=== PATIENT | female | born 1950 | race Two or more races ===

== ENCOUNTER → 2018-09-02 | Day surgery (SDC) | payer MEDICARE, OTHER ==
[~2018-09-02] MED LIST: ALBUTEROL/ATROVENT INH; BUPIVACAINE HCL 0.5% 10ML MPF VIAL INJ ONE; COREG3.125 MG PO; HUMALOG100 UNIT/1 SC; HUMALOG100 UNIT/3 SC; IOPAMIDOL 200 MG/ML 20 ML VIAL IT ONE; IOPAMIDOL 610MG/1ML 300 MG/ML VIAL IV ONE; LEVOTHYROXINE0.5 GM PO; LIDOCAINE HCL 1% 30ML-PF VIAL ONE; LIDOCAINE HCL 2% LOCAL INJ 5 ML SDV VIAL INJ ONE; METFORMIN HCL850 MG PO; PROAIR HFA INH8.5 GM IH; PROPOFOL IV EMULSION 10 MG/ML 20 ML VIAL ONE; QVAR INH; TOUJEO SC; TRIAMCINOLONE ACET 40 MG/ML VIAL ONE; [UNRECOGNIZED DRUG - OTHER] SC
--- OUTSIDE RECORDS SUMMARY | 2018-09-02 05:11 | XMS REPORT | Clinical Summary ---
Author Author [facility] Address Unknown Phone Unavailable Care Team Providers Care Powder Coat Painter Name Role Phone Shubham Cisneros MD PCP Allergies Not on File Current Medications Not on file Active Problems Not on file Encounters Date Type Specialty Care Team Description 08/09/2018 [facility] Radiology Dami Noyola, Right hip pain Encounter DO 08/09/2018 [facility] Radiology Dami Noyola, Lumbosacral stenosis Encounter DO 08/06/2018 Procedure Pass Radiology 08/06/2018 Procedure Pass Radiology 08/06/2018 Transcribe Access Dami Noyola, Lumbosacral stenosis Orders DO (Primary Dx); Right hip pain after 09/01/2017 Social History Tobacco Use Types Packs/Day Years Used Date Never Assessed Sex Assigned at Date Recorded Not on file Last Filed Vital Signs Vital Sign Reading Time Taken Blood Pressure - - Pulse - - Temperature - - Respiratory Rate - - Oxygen Saturation - - Inhaled Oxygen - - Concentration Weight 68 kg (150 lb) 08/09/2018 11:15 AM CDT Height - - Body Mass Index - - Plan of Treatment Health Maintenance Due Date Last Done Comments BREAST CANCER SCREENING 1998 COLON CANCER SCREENING 1998 SHINGRIX VACCINE (#1) 1998 ZOSTER VACCINE 2008 PNEUMOCOCCAL 2013 POLYSACCHARIDE VACCINE AGE 65 AND OVER PNEUMOCOCCAL-13 2013 INFLUENZA VACCINE 06/12/2018 Procedures Procedure Name Priority Date/Time Associated Diagnosis Comments MRI LUMBAR SPINE W WO Routine 08/09/2018 Lumbosacral stenosis Results for this CONTRAST 12:35 PM CDT procedure are in the results section. MRI LOWER EXTREMITY JOINT Routine 08/09/2018 Right hip pain Results for this WO CONTRAST RIGHT 12:34 PM CDT procedure are in the results section. ESTIMATED GFR Routine 07/30/2018 Results for this 11:39 AM CDT procedure are in the results section. BASIC METABOLIC PANEL Routine 07/30/2018 Lumbosacral stenosis Results for this 11:39 AM CDT procedure are in the results section. after 09/01/2017 Results * MRI Lumbar Spine W Wo Contrast (08/09/2018 12:35 PM) Narrative Performed At EXAM:MRI LUMBAR SPINE W WO CONTRAST [facility] COMPARISON: None. CLINICAL HISTORY: M48.07 Spinal stenosislumbosacral region, M48.07 TECHNIQUE: Multiplanar multisequence examination was performedWith and without contrast. FINDINGS: Sagittal images demonstrate degenerative desiccation of the L4-5 disc. There are postoperative changes at L5-S1. Axial images demonstrate the following: L5-S1: There is a broad-based central and somewhat right-sided subarticular disc protrusion with impingement on the thecal sac and the right S1 nerve root. There is laminectomy. There is abnormal signal within the disc space consistent with interbody fusion. L4-5: There is laminectomy. There is a broad-based central and somewhat left-sided disc protrusion with impingement on the thecal sac and the left L5 nerve root. L3-4: No significant disc bulge or stenosis. L2-3: No significant disc bulge or stenosis. L1-2: No significant disc bulge or stenosis. IMPRESSION: Postoperative changes at L4-5 and L5-S1. Broad-based central and right paracentral protrusion at L5-S1 impinging on the thecal sac and the right S1 root Central and somewhat left-sided disc protrusion at L4-5 with minimal on the thecal sac and the left L5 nerve root. [facility]-[id number] Procedure Note Hm Interface, Radiology Results Incoming - 08/09/2018 2:03 PM CDT EXAM: MRI LUMBAR SPINE W WO CONTRAST COMPARISON: None. CLINICAL HISTORY: M48.07 Spinal stenosis lumbosacral region, M48.07 TECHNIQUE: Multiplanar multisequence examination was performed With and without contrast. FINDINGS: Sagittal images demonstrate degenerative desiccation of the L4-5 disc. There are postoperative changes at L5-S1. Axial images demonstrate the following: L5-S1: There is a broad-based central and somewhat right-sided subarticular disc protrusion with impingement on the thecal sac and the right S1 nerve root. There is laminectomy. There is abnormal signal within the disc space consistent with interbody fusion. L4-5: There is laminectomy. There is a broad-based central and somewhat left- sided disc protrusion with impingement on the thecal sac and the left L5 nerve root. L3-4: No significant disc bulge or stenosis. L2-3: No significant disc bulge or stenosis. L1-2: No significant disc bulge or stenosis. IMPRESSION: Postoperative changes at L4-5 and L5-S1. Broad-based central and right paracentral protrusion at L5-S1 impinging on the thecal sac and the right S1 root Central and somewhat left-sided disc protrusion at L4-5 with minimal on the thecal sac and the left L5 nerve root. [facility]-[id number] Performing Organization Address City/State/Zipcode Phone Number [facility] [address] [place] [address] * MRI Lower Extremity Joint Wo Contrast Right (08/09/2018 12:34 PM) Narrative Performed At [facility] EXAMINATION:MRI LOWER EXTREMITY JOINT WO CONTRAST RIGHT CLINICAL HISTORY:M25.551 Pain in right hip, M25.551 COMPARISON:No prior TECHNIQUE: Multisequence multiplanar MRI of the hips with special attention to the right hip was performed without contrast. FINDINGS: Osteophyte is noted in right hip with axial joint space narrowing as well as mild osteoarthritis formation. A full-thickness cartilage defect is not identified. Hip joint fluid upper limits of normal. No femoral head avascular necrosis or femoral neck stress fractures. Degenerative tearing of the anterior superior and posterior superior labrum. Increased lateral Center edge angles bilaterally related to the axial joint space narrowing and calcification along the lateral acetabular rim. Correlate for pincer-type impingement. Mild heterogeneous marrow in the spine, pelvis and proximal femurs without suspicious lesion, fracture or stress reaction. Gluteal tendons intact. Hamstring tendons intact. Mild narrowing of the right quadratus lumborum or space measuring 7 mm with findings that can be seen with ischiofemoral impingement. No iliopsoas or trochanteric bursitis. IMPRESSION: 1. Osteoarthritis in the right hip with axial joint space narrowing and findings that can be seen with pincer-type femoroacetabular impingement and the ischiofemoral impingement. 2.Joint effusion. Degenerative labral tearing in the right hip. Procedure Note Interface, Radiology Results Incoming - 08/09/2018 2:05 PM CDT EXAMINATION: MRI LOWER EXTREMITY JOINT WO CONTRAST RIGHT CLINICAL HISTORY: M25.551 Pain in right hip, M25.551 COMPARISON: No prior TECHNIQUE: Multisequence multiplanar MRI of the hips with special attention to the right hip was performed without contrast. FINDINGS: Osteophyte is noted in right hip with axial joint space narrowing as well as mild osteoarthritis formation. A full-thickness cartilage defect is not identified. Hip joint fluid upper limits of normal. No femoral head avascular necrosis or femoral neck stress fractures. Degenerative tearing of the anterior superior and posterior superior labrum. Increased lateral Center edge angles bilaterally related to the axial joint space narrowing and calcification along the lateral acetabular rim. Correlate for pincer-type impingement. Mild heterogeneous marrow in the spine, pelvis and proximal femurs without suspicious lesion, fracture or stress reaction. Gluteal tendons intact. Hamstring tendons intact. Mild narrowing of the right quadratus lumborum or space measuring 7 mm with findings that can be seen with ischiofemoral impingement. No iliopsoas or trochanteric bursitis. IMPRESSION: 1. Osteoarthritis in the right hip with axial joint space narrowing and findings that can be seen with pincer-type femoroacetabular impingement and the ischiofemoral impingement. 2. Joint effusion. Degenerative labral tearing in the right hip. Performing Organization Address City/[facility]/Zipcode Phone Number [facility] [address] [place] [address] * Estimated GFR (07/30/2018 11:39 AM) Estimated GFR 51 (A) mL/min/1.73 m2 [facility] DEPARTMENT OF Comment: PATHOLOGY AND CatergoryUnitsInte GENOMIC MEDICINE rpretation G1 >=90 Normal or high G2 60-89Mildly decreased [id number] Mildly to moderately decreased [id number] Moderately to severely decreased G4 15-29Severely decreased G5 <15Kidney failure The eGFR was calculated using the Chronic Kidney Disease Epidemiology Collaboration (CKD-EPI) equation. Interpretation is based on recommendations of the National Kidney Foundation-Kidney Disease Outcomes Quality Initiative (NKF-KDOQI) published in 2014. Specimen Plasma specimen Performing Organization Address City/[facility]/Zipcode Phone Number [facility] DEPARTMENT OF [place] [address] PATHOLOGY AND GENOMIC MEDICINE * Basic metabolic panel (07/30/2018 11:39 AM) Sodium 137 135 - 150 mEq/L [facility] DEPARTMENT OF PATHOLOGY AND GENOMIC MEDICINE Potassium 4.3 3.5 - 5.0 mEq/L [facility] DEPARTMENT OF PATHOLOGY AND GENOMIC MEDICINE Chloride 94 (L) 98 - 112 mEq/L [facility] DEPARTMENT OF PATHOLOGY AND GENOMIC MEDICINE CO2 28 24 - 31 mmol/L [facility] DEPARTMENT OF PATHOLOGY AND GENOMIC MEDICINE Anion gap 15@ANIO 7 - 15 mEq/L [facility] DEPARTMENT OF PATHOLOGY AND GENOMIC MEDICINE BUN 18 7 - 18 mg/dL [facility] DEPARTMENT OF PATHOLOGY AND GENOMIC MEDICINE Creatinine 1.10 (H) 0.50 - 0.90 mg/dL [facility] DEPARTMENT OF PATHOLOGY AND GENOMIC MEDICINE Glucose 213 (H) 65 - 100 mg/dL [facility] DEPARTMENT OF PATHOLOGY AND GENOMIC MEDICINE Calcium 9.6 8.8 - 10.2 mg/dL [facility] DEPARTMENT OF PATHOLOGY AND GENOMIC MEDICINE Specimen Plasma specimen Performing Organization Address City/State/Zipcode Phone Number [facility] DEPARTMENT [place] [address] [place] [address] PATHOLOGY AND GENOMIC MEDICINE after 09/01/2017 Insurance Payer Benefit Subscriber ID Type Phone Address Plan / Group MEDICARE MEDICARE xxxxxxxxxx Medicare [place] B CIGNA CIGNA OPEN xxxxxxxxxxx HMO ACCESS/NET WORK
[2018-09-02 07:45] VITALS: BP 149/76
--- NOTE | 2018-09-02 13:30 | Operative Report ---
DATE OF PROCEDURE: September 02, 2018 PREOPERATIVE DIAGNOSIS: Osteoarthritis, right hip. POSTOPERATIVE DIAGNOSIS: Osteoarthritis, right hip. PROCEDURE: Fluoroscopic-guided right hip injection. INDICATIONS: The patient is a 68-year-old lady who has osteoarthritis of her right hip. She is also status post back surgery. Her arthritis is not so bad that it is entirely obvious that all of her symptoms are coming from her hip. We have discussed the findings and options and plan on a fluoroscopic-guided corticosteroid injection of the right hip. The risks and benefits were explained. She stated she understood and wished to proceed. DESCRIPTION OF PROCEDURE: The patient was brought to the procedure room. She was given a MAC anesthetic. Her right hip was prepped and draped in a sterile manner. A preoperative time out was performed. A C-arm image intensifier was used to assist in placing an 18-gauge spinal needle into the inferior recess of the right hip joint. She is allergic to IV contrast, and so we avoided confirming position with any contrast. A small amount of synovial fluid was aspirated. A mixture of 40 mg of Solu-Medrol and 9 mL of Marcaine was injected into the hip joint. The needle was retrieved, and a Band-Aid was applied. There was no blood loss, and all needle and sponge counts were correct. Job#: [id number]
== END | disposition home or self-care (01) ==
LOC: OR 05:09
PROVIDERS: ATTEND Specialist
DX: M16.11 Unilateral primary osteoarthritis, right hip (principal); E11.9 Type 2 diabetes mellitus without complications; Z79.4 Long term (current) use of insulin; Z79.84 Long term (current) use of oral hypoglycemic drugs; K21.9 Gastro-esophageal reflux disease without esophagitis; K58.9 Irritable bowel syndrome, unspecified; I10 Essential (primary) hypertension; M19.90 Unspecified osteoarthritis, unspecified site; J45.909 Unspecified asthma, uncomplicated; K25.9 Gastric ulcer, unspecified as acute or chronic, without hemorrhage or perforation; M96.1 Postlaminectomy syndrome, not elsewhere classified; Z91.041 Radiographic dye allergy status
CPT/HCPCS: 20610; 36415; 82948; J2001; J3301; Q9966; Q9967

== ENCOUNTER → 2018-09-05 | Day surgery (SDC) | payer MEDICARE, OTHER ==
[~2018-09-05] MED LIST changes: -BUPIVACAINE HCL 0.5% 10ML MPF VIAL INJ ONE; +DEXTROSE 5% 250ML 250 ML IV ONE; -IOPAMIDOL 200 MG/ML 20 ML VIAL IT ONE; -IOPAMIDOL 610MG/1ML 300 MG/ML VIAL IV ONE; -LIDOCAINE HCL 1% 30ML-PF VIAL ONE; -LIDOCAINE HCL 2% LOCAL INJ 5 ML SDV VIAL INJ ONE; -PROPOFOL IV EMULSION 10 MG/ML 20 ML VIAL ONE; +PROPOFOL IV EMULSION 10 MG/ML 50 ML VIAL ONE; -TRIAMCINOLONE ACET 40 MG/ML VIAL ONE
--- OUTSIDE RECORDS SUMMARY | 2018-09-05 10:09 | XMS REPORT | Clinical Summary ---
Author Author [facility] Organization [facility] Address Unknown Phone Unavailable Care Team Providers Care Special Education Supervisor Name Role Phone Shubham Cisneros MD PCP Allergies Not on File Current Medications Not on file Active Problems Not on file Encounters Date Type Specialty Care Team Description 08/09/2018 [facility] Radiology Dami Noyola, Right hip pain Encounter DO 08/09/2018 [facility] Radiology Dami Noyola, Lumbosacral stenosis Encounter DO 08/06/2018 Procedure Pass Radiology 08/06/2018 Procedure Pass Radiology 08/06/2018 Transcribe Access Dami Noyola, Lumbosacral stenosis Orders DO (Primary Dx); Right hip pain after 09/04/2017 Social History Tobacco Use Types Packs/Day Years [...] procedure are in the results section. after 09/04/2017 Results * MRI Lumbar Spine W Wo [...] left L5 nerve root. [facility]-[id number] Procedure Note Hm Interface, Radiology Results Incoming [...] left L5 nerve root. [facility]-[id number] Performing Organization Address City/State/Zipcode Phone Number [facility] [address] [place] [address] * MRI Lower Extremity Joint Wo Contrast [...] in the right hip. Performing Organization Address City/[facility]/Zipcode Phone Number [facility] [address] [place] [address] * Estimated GFR (07/30/2018 11:39 AM) Estimated GFR 51 (A) mL/min/1.73 m2 [facility] DEPARTMENT OF Comment: PATHOLOGY AND CatergoryUnitsInte GENOMIC MEDICINE rpretation G1 >=90 Normal or high G2 60-89Mildly decreased [id number] Mildly to moderately decreased [id number] Moderately to severely decreased G4 15-29Severely decreased G5 <15Kidney failure The eGFR was calculated using the Chronic Kidney Disease Epidemiology Collaboration (CKD-EPI) equation. Interpretation is based on recommendations of the National Kidney Foundation-Kidney Disease Outcomes Quality Initiative (NKF-KDOQI) published in 2014. Specimen Plasma specimen Performing Organization Address City/[facility]/Zipcode Phone Number [facility] DEPARTMENT OF [facility] [place] [address] PATHOLOGY AND GENOMIC MEDICINE * Basic metabolic panel (07/30/2018 11:39 AM) Sodium 137 135 - 150 mEq/L [facility] DEPARTMENT OF PATHOLOGY AND GENOMIC MEDICINE Potassium 4.3 3.5 - 5.0 mEq/L [facility] DEPARTMENT OF PATHOLOGY AND GENOMIC MEDICINE Chloride 94 (L) 98 - 112 mEq/L [facility] DEPARTMENT OF PATHOLOGY AND GENOMIC MEDICINE CO2 28 24 - 31 mmol/L [facility] DEPARTMENT OF PATHOLOGY AND GENOMIC MEDICINE Anion gap 15@ANIO 7 - 15 mEq/L [facility] DEPARTMENT OF PATHOLOGY AND GENOMIC MEDICINE BUN 18 7 - 18 mg/dL [facility] DEPARTMENT OF PATHOLOGY AND GENOMIC MEDICINE Creatinine 1.10 (H) 0.50 - 0.90 mg/dL [facility] DEPARTMENT OF PATHOLOGY AND GENOMIC MEDICINE Glucose 213 (H) 65 - 100 mg/dL [facility] DEPARTMENT OF PATHOLOGY AND GENOMIC MEDICINE Calcium 9.6 8.8 - 10.2 mg/dL [facility] DEPARTMENT OF PATHOLOGY AND GENOMIC MEDICINE Specimen Plasma specimen Performing Organization Address City/State/Zipcode Phone Number [facility] DEPARTMENT [place] [address] [place] [address] PATHOLOGY AND GENOMIC MEDICINE after 09/04/2017 Insurance Payer Benefit Subscriber ID Type Phone Address Plan / Group MEDICARE MEDICARE xxxxxxxxxx Medicare [place], [place] PART A AND B CIGNA CIGNA OPEN xxxxxxxxxxx HMO ACCESS/NET WORK
[2018-09-05 14:35] VITALS: BP 152/69
== END | disposition home or self-care (01) ==
LOC: OR 10:07
PROVIDERS: ATTEND Internal Medicine
DX: R19.7 Diarrhea, unspecified (principal); K63.5 Polyp of colon; K64.0 First degree hemorrhoids; K58.9 Irritable bowel syndrome, unspecified; K21.9 Gastro-esophageal reflux disease without esophagitis; E11.9 Type 2 diabetes mellitus without complications; I10 Essential (primary) hypertension; J45.909 Unspecified asthma, uncomplicated; Z91.041 Radiographic dye allergy status; F41.9 Anxiety disorder, unspecified; Z79.4 Long term (current) use of insulin
CPT/HCPCS: 36415; 45380; 82948; J7070

== ENCOUNTER → 2020-06-14 | Outpatient (CLI) | payer MEDICARE, OTHER ==
[~2020-06-14] MED LIST changes: -DEXTROSE 5% 250ML 250 ML IV ONE; -PROPOFOL IV EMULSION 10 MG/ML 50 ML VIAL ONE
--- NOTE | 2020-06-14 18:30 | Diagnostic Imaging Report ---
Bone Scan, delayed phase INDICATION: Post-laminectomy syndrome. History of laminectomies at T12 and L4. COMPARISON: None REPORT: Approximately 3 hours following intravenous administration of 27.4 mCi of Tc-99m MDP, delayed total body images in the anterior and posterior projections and selected spot images were obtained. Focal areas of increased tracer activity are seen in the right lateral aspects of T6-T9, bilaterally in T9-T1, on the left in T12 and right side of T12/L1 and right lateral aspect of the L1. A small photopenic focus is seen in L4 in the midline. A focus of increased tracer is seen on the right between S1 and the superior aspect of the right sacral ala. Increased tracer is seen in the right hand (left hand not imaged) and in the bilateral knees. Otherwise, distribution of tracer activity is unremarkable throughout the skeletal system. No abnormal accumulation of tracer is seen in the soft tissues or urinary tract. The kidneys are slightly reduced in size. IMPRESSION: Findings in the thoracolumbar spine are typical of degenerative change. The osteoblastic process in the superior aspect of the right sacral ala is also likely degenerative. The photopenic defect in L4 is related to prior laminectomy. Degenerative changes are also seen in the right hand (left hand no imaged) and knees. No acute process such as compression fractures. Signed by: Dr. Gracy Murillo M.D. on 06/14/2020 6:26 PM
== END ==
LOC: NM 08:26
PROVIDERS: ATTEND Specialist
DX: M96.1 Postlaminectomy syndrome, not elsewhere classified (principal); M47.816 Spondylosis without myelopathy or radiculopathy, lumbar region
CPT/HCPCS: 78306; A9503